=== PATIENT | female | born 2005 | race Caucasian/White ===

== ENCOUNTER 2025-08-19 09:30 | Day surgery (SDC) | payer OTHER ==
[~2025-08-19] VITALS: Ht 157.5 cm; Wt 124.7 kg
[~2025-08-19 09:30] MED LIST: CLON0.5T17 PO; NORG1TAB33 PO; SERT50TA29 PO
[2025-08-19] MEDS ORDERED: ACETAMINOPHEN 1000MG/100ML IV BAG As Ordered ONE (10:07)
[2025-08-19] MEDS ORDERED: LIDOCAINE 2% 100 MG/5 ML SDV (FOR ANES.) As Ordered ONE (10:07)
[2025-08-19] MEDS ORDERED: ROCURONIUM BROMIDE 50MG/5ML VIAL As Ordered ONE (10:07)
[2025-08-19] MEDS ORDERED: MIDAZOLAM INJ 2 MG/2 ML VIAL As Ordered ONE (10:07)
[2025-08-19] MEDS ORDERED: SUGAMMADEX SODIUM 200 MG/2 ML VIAL As Ordered ONE (10:07)
[2025-08-19] MEDS ORDERED: dexAMETHasone 4 MG/ML 1 ML VIAL As Ordered ONE (10:07)
[2025-08-19] MEDS ORDERED: KETOROLAC 30 MG/ML 1 ML VIAL As Ordered ONE (10:07)
[2025-08-19] MEDS ORDERED: ONDANSETRON 4MG/2ML VIAL As Ordered ONE (10:07)
[2025-08-19] MEDS ORDERED: LR 1,000 ML IV SCH (10:10)
[2025-08-19] MEDS: AMPICILLIN SOD/SULBACTAM SOD 3 GM in D5W MINI-BAG 100 ML IV ONE (12:25)
[2025-08-19] MEDS: dexAMETHasone 4 MG/ML 1 ML VIAL IV ONE (12:25)
[2025-08-19] MEDS: CHLORHEXIDINE GLUCONATE 0.12% 15 ML UDC As Ordered ONE (12:47)
[2025-08-19] MEDS ORDERED: HYDROMORPHONE HCL 0.5 MG/0.5 ML SYRINGE IV PRN (12:55)
[2025-08-19] MEDS ORDERED: MORPHINE 2 MG/ML 1 ML VIAL IV PRN (12:55)
[2025-08-19] MEDS ORDERED: ONDANSETRON 4MG/2ML VIAL IV PRN (13:15)
[2025-08-19] MEDS: ONDANSETRON 4MG ORAL DISINTEGRATING TAB PO STA (13:29)
[2025-08-19 13:45] VITALS: BP 123/84; TEMP 97.5; O2SAT 96
== END 2025-08-19 14:02 | disposition home or self-care (01) ==
LOC: M SDC 09:30
PROVIDERS: ATTEND Dentist
DX: K02.9 Dental caries, unspecified (principal); K08.89 Other specified disorders of teeth and supporting structures; J45.909 Unspecified asthma, uncomplicated; F41.9 Anxiety disorder, unspecified; F32.A Depression, unspecified; Z79.899 Other long term (current) drug therapy
CPT/HCPCS: 81025; 88300; D7210; J0131; J0295; J1100; J1885; J2250; J2405; J3010